=== PATIENT | female | born 1950 | race Two or more races ===

== ENCOUNTER 2018-03-03 12:25 | Inpatient (IN) | payer MEDICAID, OTHER ==
[~2018-03-03] VITALS: Ht 165.1 cm; Wt 99.8 kg
[~2018-03-03 12:25] MED LIST: CEFAZOLIN SODIUM/DEXTROSE,ISO 50 ML IV ONE
[2018-03-03] MEDS ORDERED: BACITRACIN 50000 UNITS/VIAL ONE (12:35)
[2018-03-03] MEDS ORDERED: BUPIVACAINE MPF 0.75% 30 ML VIAL ONE (14:05)
[2018-03-03] MEDS ORDERED: MIDAZOLAM HCL 2 MG/2ML VIAL ONE (14:06)
[2018-03-03] MEDS ORDERED: BUPIVACAINE MPF 0.5% W/EPI INJ 30 ML VIAL ONE (14:07)
[2018-03-03] MEDS ORDERED: TRANEXAMIC ACID 3,000 MG in SODIUM CHLORIDE IRRIG SOLUTION 70 ML IR ONE (15:00)
[2018-03-03] MEDS ORDERED: ZOLPIDEM TARTRATE 5 MG TABLET PO PRN (18:00)
[2018-03-03] MEDS ORDERED: MAG HYDROX/AL HYDROX/SIMETH 30 ML UDC PO PRN (18:00)
[2018-03-03] MEDS ORDERED: Z GUARD REMEDY 2 OZ OINT TP PRN (18:00)
[2018-03-03] MEDS ORDERED: ONDANSETRON HCL/PF 4 MG/2 ML VIAL IVP PRN (18:00)
[2018-03-03] MEDS ORDERED: MAGNESIUM HYDROXIDE 30 ML UDC PO PRN (18:00)
[2018-03-03] MEDS ORDERED: MONT10TA22 PO (18:35)
[2018-03-03] MEDS ORDERED: METF850T2 PO (18:35)
[2018-03-03] MEDS ORDERED: ATOR40TA PO (18:35)
[2018-03-03] MEDS ORDERED: GABA-534 PO (18:35)
[2018-03-03] MEDS ORDERED: SOTA80TA PO (18:35)
[2018-03-03] MEDS ORDERED: WARF1TAB47 PO (18:35)
[2018-03-03] MEDS ORDERED: OMEP20TA5 PO (18:35)
[2018-03-03] MEDS ORDERED: MORPHINE SULFATE INJ 2 MG/ML DISP.SYRIN IV PRN (19:30)
[2018-03-03 19:36] VITALS: BP 132/59
[2018-03-03 20:00] VITALS: BP 132/59
[2018-03-03] MEDS: CEFAZOLIN 2 GM in IV D5W 50 ML IV SCH (20:31)
[2018-03-04] MEDS: CEFAZOLIN 2 GM in IV D5W 50 ML IV SCH ×2 (03:59→15:18)
[2018-03-04] MEDS: ACETAMINOPHEN 325 MG TABLET PO PRN ×2 (05:45→11:34)
[2018-03-04 06:18] LABS: BASOPHILS % (AUTO) 0.1 % (0.0-2.0); EOSINOPHILS % (AUTO) 0.1 % (0.0-6.0); HEMATOCRIT 32 % (33-45); HEMOGLOBIN 10.3 g/dL (11.5-14.8); LYMPHOCYTES # (AUTO) 0.7 /CMM (0.8-4.8); MEAN CORPUSCULAR HEMOGLOBIN 25 PG (26.0-33.0); MEAN CORPUSCULAR HGB CONC 32 g/dl (31.0-36.0); MEAN CORPUSCULAR VOLUME 79 fL (82-100); MONOCYTES # (AUTO) 0.7 /CMM (0.1-1.30); MONOCYTES % (AUTO) 7.6 % (2.0-12.0); NEUTROPHILS # (AUTO) 7.8 /CMM (1.8-8.9); NEUTROPHILS % (AUTO) 84.2 % (43.0-81.0); PLATELET COUNT (AUTO) 181 /CMM (150-450); RDW COEFFICIENT OF VARIATION 17.9 (11.5-15.0); RED BLOOD CELL COUNT(AUTO) 4.08 MIL/uL (4.0-5.2); WHITE BLOOD COUNT (AUTO) 9.3 K/uL (4.3-11.0)
[2018-03-04 06:57] LABS: CALCIUM, SERUM 8.5 mg/dL (8.5-10.1); CREATININE 0.9 mg/dL (0.6-1.3); MAGNESIUM 1.6 mg/dL (1.8-2.4); PHOSPHORUS 3.5 mg/dL (2.5-4.9); POTASSIUM 3.8 mmol/L (3.5-5.1)
[2018-03-04 08:00] VITALS: BP 106/59
[2018-03-04] MEDS: Magnesium 1GM/D5W 100ML PREMIX 100 ML IV SCH ×3 (08:44→11:34)
[2018-03-04] MEDS: IV NS 0.9% 1,000 ML IV PRN (08:44)
[2018-03-04] MEDS ORDERED: IV NS 0.9% 1,000 ML BAG IV SCH (09:00)
[2018-03-04] MEDS: diphenhydrAMINE HCL 50 MG/ML VIAL IV PRN ×2 (09:46→17:03)
[2018-03-04] MEDS ORDERED: KETOROLAC TROMETHAMINE INJ 30 MG/ML VIAL IV PRN (15:30)
[2018-03-04 16:00] VITALS: BP 100/62
[2018-03-04] MEDS: MORPHINE SULFATE INJ 2 MG/ML DISP.SYRIN IV PRN ×3 (17:03→21:30)
[2018-03-04 20:00] VITALS: BP 126/77
[2018-03-05] MEDS: IV NS 0.9% 1,000 ML IV PRN (01:34)
[2018-03-05] MEDS: MORPHINE SULFATE INJ 2 MG/ML DISP.SYRIN IV PRN ×3 (01:43→12:28)
[2018-03-05 07:05] LABS: CREATININE 0.8 mg/dL (0.6-1.3); MAGNESIUM 2.2 mg/dL (1.8-2.4); POTASSIUM 3.5 mmol/L (3.5-5.1)
[2018-03-05 07:30] LABS: BASOPHILS % (AUTO) 0.1 % (0.0-2.0); EOSINOPHILS % (AUTO) 0.3 % (0.0-6.0); HEMATOCRIT 28 % (33-45); HEMOGLOBIN 8.9 g/dL (11.5-14.8); LYMPHOCYTES # (AUTO) 1.2 /CMM (0.8-4.8); LYMPHOCYTES % (AUTO) 13.4 % (20.0-44.0); MEAN CORPUSCULAR HEMOGLOBIN 25 PG (26.0-33.0); MEAN CORPUSCULAR HGB CONC 32 g/dl (31.0-36.0); MEAN CORPUSCULAR VOLUME 80 fL (82-100); MONOCYTES # (AUTO) 0.8 /CMM (0.1-1.30); MONOCYTES % (AUTO) 9.2 % (2.0-12.0); NEUTROPHILS # (AUTO) 6.8 /CMM (1.8-8.9); PLATELET COUNT (AUTO) 178 /CMM (150-450); RDW COEFFICIENT OF VARIATION 18.1 (11.5-15.0); RED BLOOD CELL COUNT(AUTO) 3.54 MIL/uL (4.0-5.2); WHITE BLOOD COUNT (AUTO) 8.9 K/uL (4.3-11.0)
[2018-03-05 08:00] VITALS: BP 129/89
[2018-03-05] MEDS: HYDROCODONE/APAP 5/325MG 1 EACH TABLET PO PRN ×2 (08:11→14:51)
[2018-03-05] MEDS: ACETAMINOPHEN 325 MG TABLET PO PRN (09:58)
[2018-03-05] MEDS: diphenhydrAMINE HCL 50 MG/ML VIAL IV PRN (11:26)
[2018-03-05 16:00] VITALS: BP 125/64
[2018-03-05] MEDS ORDERED: HYDROCODONE/APAP 5/325MG 1 EACH TABLET PO ONE (17:30)
== END 2018-03-05 17:52 | disposition home health service (06) | DRG 483 ==
LOC: DS 12:25 → MED 17:51
PROVIDERS: ADMIT Student in an Organized Health Care Education/Training Program; ATTEND Student in an Organized Health Care Education/Training Program
PROC: 0RRK00Z Replacement of Left Shoulder Joint with Reverse Ball and Socket Synthetic Substitute, Open Approach (ICD-10-PCS; principal; 2018-03-03 14:25)
DX: M19.012 Primary osteoarthritis, left shoulder (principal); N17.0 Acute kidney failure with tubular necrosis; E66.9 Obesity, unspecified; I25.10 Atherosclerotic heart disease of native coronary artery without angina pectoris; Z68.36 Body mass index [BMI] 36.0-36.9, adult; D63.8 Anemia in other chronic diseases classified elsewhere; J45.909 Unspecified asthma, uncomplicated; K21.9 Gastro-esophageal reflux disease without esophagitis; E83.42 Hypomagnesemia; Z90.710 Acquired absence of both cervix and uterus; E11.65 Type 2 diabetes mellitus with hyperglycemia; Z79.84 Long term (current) use of oral hypoglycemic drugs; Z95.5 Presence of coronary angioplasty implant and graft
CPT/HCPCS: 36415; 73020; 80048-TC; 80061-TC; 82962-TC; 83735-TC; 84100-TC; 85025-TC; 86850-TC; 86921-TC; 87081-TC; 97116-TC; 97530-TC; A4217; J0690; J1200; J1885; J2250; J2270; J3475; J3490; J7030; J7060; Z7610